=== PATIENT | male | born 1955 | race Caucasian/White ===

== ENCOUNTER → 2024-06-28 | Outpatient (CLI) | payer OTHER ==
[~2024-06-28] MED LIST: ALBU90OI INH; ALLO100 PO; CEPH500 PO; CRUTCH3 USE; DIPH50 PO; HYDACE5; HYDACE5 PO; INDO50 PO; LISHYD2012 PO; MELO7.5 PO; NAPR550 PO; OMEP20ER PO; TIOT18 INH
[2024-06-30 14:36] LABS: Stool Occult Bld Immuno 1 Negative (NEGATIVE)
== END ==
LOC: LAB 20:00 → LAB SHORT 20:00
PROVIDERS: Family Medicine
DX: Z12.11 Encounter for screening for malignant neoplasm of colon (principal)
CPT/HCPCS: G0328

== ENCOUNTER 2024-08-05 21:43 | Emergency (ER) | payer OTHER ==
[~2024-08-05] VITALS: Ht 182.9 cm; Wt 135.6 kg
[2024-08-05] MEDS ORDERED: HYDROcodone 5-APAP 325 TAB PO ONE (22:25)
[2024-08-05] MEDS ORDERED: Cyclobenzaprine HCl 10 MG Tab PO ONE (22:30)
[2024-08-05] MEDS ORDERED: Ketorolac Tromethamine 30mg Vial IM ONE (22:30)
[2024-08-05 23:15] VITALS: BP 102/60
[2024-08-05] MEDS ORDERED: CYCL10 PO (23:19)
== END 2024-08-05 23:37 | disposition home or self-care (01) ==
LOC: ER 21:43
DX: S39.012A Strain of muscle, fascia and tendon of lower back, initial encounter (principal); S80.01XA Contusion of right knee, initial encounter; F17.200 Nicotine dependence, unspecified, uncomplicated; W10.9XXA Fall (on) (from) unspecified stairs and steps, initial encounter; Z79.899 Other long term (current) drug therapy
CPT/HCPCS: 73562-RT; 96372; 99283-25; A9270; J1885